=== PATIENT | female | born 1935 | race Caucasian/White ===

== ENCOUNTER 2016-03-29 12:42 | Emergency (ER) | payer MEDICARE, BC | END 2016-03-29 13:36 | disposition left against medical advice (07) | LOC: UCEAST 12:42 | DX: J02.9 Acute pharyngitis, unspecified (principal); Z53.21 Procedure and treatment not carried out due to patient leaving prior to being seen by health care provider ==

== ENCOUNTER 2016-03-29 14:29 | Emergency (ER) | payer MEDICARE, BC ==
[2016-03-29 15:05] VITALS: BP 160/90
--- NOTE | 2016-03-29 15:29 | UC ---
Respiratory Complaint HPI - HPI Summary HPI Summary: Tickle in throat on/off for a few days-no fever or SOB - History of Current Complaint Chief Complaint: UCRespiratory Stated Complaint: SORE THROAT Time Seen by Provider: 03/29/16 15:09 Hx Obtained From: Patient Hx Last Menstrual Period: years ago. ?: No Onset/Duration: Gradual Onset, Lasting Days Timing: Intermittent Episodes Severity Currently: Mild Pain Intensity: 2 Pain Scale Used: 0-10 Numeric Character: Cough: Nonproductive Aggravating Factors: Nothing Alleviating Factors: Nothing - Allergies/Home Medications Allergies/Adverse Reactions: Allergies Allergy/AdvReac Type Severity Reaction Status Date / Time No Known Allergies Allergy Verified 03/29/16 15:04 Home Medications: Home Medications Med For Osteoporosis* 03/29/16 [History] PMH/Surg Hx/FS Hx/Imm Hx Previously Healthy: No Endocrine History Of: Reports: Dyslipidemia Denies: Diabetes, Thyroid Disease, Hyperthyroidism, Hypothyroidism Cardiovascular History Of: Reports: Hypertension Denies: Cardiac Disorders, Pacemaker/ICD, Myocardial Infarction, Congestive Heart Failure, Atrial Fibrillation, Deep Vein Thrombosis, Bleeding Disorders Respiratory History Of: Denies: COPD, Asthma, Bronchitis, Pneumonia, Pulmonary Embolism GI/ History Of: Denies: Gastroesophageal Reflux, Ulcer, Gastrointestinal Bleed, Gall Bladder Disease, Kidney Stones, Diverticulitis, Renal Disease, Urosepsis Neurological History Of: Denies: TIA, CVA, Dementia, Seizures, Migraine Psychological History Of: Denies: Anxiety, Depression, Bipolar Disorder, Schizophrenia, Post Traumatic Stress Disorder Cancer History Of: Denies: Lung Cancer, Colorectal Cancer, Breast Cancer, Prostate Cancer, Cervical Cancer - Surgical History Surgical History: None - Family History Known Family History: Positive: Hypertension - Social History Occupation: Retired Lives: With Family Alcohol Use: None Substance Use Type: None Smoking Status (MU): Never Smoked Tobacco Type: Cigarettes When Did the Patient Quit Smoking/Using Tobacco: as a teenager - Immunization History Most Recent Influenza Vaccination: 2016 Most Recent Tetanus Shot: up to date per patient Most Recent Pneumonia Vaccination: pt is up to date Review of Systems Constitutional: Negative Skin: Negative Eyes: Negative ENT: Sore Throat - occasional tickle that stimulates a cough Respiratory: Negative Cardiovascular: Negative Gastrointestinal: Negative Genitourinary: Negative Motor: Negative Neurovascular: Negative Musculoskeletal: Negative Neurological: Negative Psychological: Negative All Other Systems Reviewed And Are Negative: Yes Physical Exam Triage Information Reviewed: Yes Appearance: Well-Appearing, No Pain Distress, Well-Nourished Vital Signs: Initial Vital Signs Temp 99.3 F 03/29/16 14:59 Pulse 63 03/29/16 14:59 Resp 16 03/29/16 14:59 BP 160/90 03/29/16 14:59 Pulse Ox 100 03/29/16 14:59 Vital Signs Reviewed: Yes Eye Exam: Normal Eyes: Positive: Conjunctiva Clear ENT Exam: Normal ENT: Positive: Normal ENT inspection, Hearing grossly normal, Pharynx normal, TMs normal. Negative: Nasal congestion, Nasal drainage, Tonsillar swelling, Tonsillar exudate, Trismus, Muffled/hoarse voice Dental Exam: Normal Neck exam: Normal Neck: Positive: Supple, Nontender, No Lymphadenopathy Respiratory Exam: Normal Respiratory: Positive: Chest non-tender, Lungs clear, Normal breath sounds, No respiratory distress, No accessory muscle use Cardiovascular Exam: Normal Cardiovascular: Positive: RRR, No Murmur, Pulses Normal, Brisk Capillary Refill Musculoskeletal Exam: Normal Musculoskeletal: Positive: Strength Intact, ROM Intact, No Edema Neurological Exam: Normal Neurological: Positive: Alert Psychological Exam: Normal Skin Exam: Normal UC Diagnostic Evaluation - Laboratory O2 Sat by Pulse Oximetry: 100 Diagnostic Studies Comment: RST (-) Respiratory Course/Dx - Course Course Of Treatment: otc treatment for sore throat, julianne. prn follow with pcp - Differential Dx/Diagnosis Differential Diagnosis/HQI/PQRI: Bronchitis, Lower Resp Infection, Sinusitis Provider Diagnoses: URI Discharge - Discharge Plan Condition: Stable Disposition: HOME Patient Education Materials: Upper Respiratory Infection (ED) Referrals: Dennys Traylor MD [Primary Care Provider] - If Needed
== END 2016-03-29 15:35 | disposition home or self-care (01) ==
LOC: UCEAST 14:29
DX: J06.9 Acute upper respiratory infection, unspecified (principal); Z87.891 Personal history of nicotine dependence
CPT/HCPCS: 87651; 99211; G0463

== ENCOUNTER 2016-08-11 07:57 | Day surgery (SDC) | payer MEDICARE, BC ==
[~2016-08-11 07:57] MED LIST: Acetaminophen TAB* 325 MG PO PRN; Buffered Lidocaine 1% SYR 3ML* 3 ML/SYR SYRINGE INTRADERM ONE
[2016-08-11] MEDS ORDERED: fentaNYL* 50 MCG/ML 2 ML VIAL (100 MCG VIAL) ONE (08:13)
[2016-08-11] MEDS ORDERED: Midazolam* 1 MG/ML 2 ML VIAL (2 MG) ONE (08:13)
[2016-08-11 09:28] VITALS: BP 152/85
[2016-08-11] MEDS ORDERED: Neomycin/Polymy/Dex OPHTH.OIN* 3.5 GM ONE (11:23)
[2016-08-11] MEDS ORDERED: Lidocaine 1% MPF* 2 ML VIAL ONE (11:23)
[2016-08-11] MEDS ORDERED: Tetracaine 0.5% OPTH.SOL 4 ML* 1 DROP BTL ONE (11:23)
[2016-08-11] MEDS ORDERED: Phenylephrine 2.5% OPTH.SOL* 2 ML BTL ONE (11:23)
[2016-08-11] MEDS ORDERED: Tropicamide 1% OPTH.SOL* BTL ONE (11:23)
[2016-08-11] MEDS ORDERED: Cyclopentolate 1% OPTH.SOL* 2 ML BTL ONE (11:23)
[2016-08-11] MEDS ORDERED: Flurbiprofen 0.03% OPTH.SOL* 2.5 ML BTL ONE (11:23)
--- NOTE | 2016-08-11 17:48 | OP ---
OPERATIVE REPORT: DATE OF OPERATION: 08/11/16 DATE OF : 39 SURGEON: Dr. Dennys Jensen. SHRIMPER: None. ANESTHESIA: Topical with intravenous sedation. PRE-OP DIAGNOSIS: Cataract, left eye. POST-OP DIAGNOSIS: Cataract, left eye. OPERATIVE PROCEDURE: Phacoemulsification and cataract extraction with posterior chamber intraocular lens implant, left eye. COMPLICATIONS: None. BLOOD LOSS: None. OPERATIVE FINDINGS: The patient was brought to the operating room and received a small amount of in travenous sedation. A drop of Tetracaine was placed in her left eye. She was prepped and draped in the usual sterile fashion for ophthalmic surgery and attention was directed to the left eye where a speculum was placed. A paracentesis was created at the 5 o'clock position and 0.1 cc of 1 percent preservative-free Lidocaine was injected into the anterior chamber followed by DisCoVisc. The eye w as digitally stabilized while a 2.75 mm keratome was used to create a triplanar clear corneal incisi on at the 3 o'clock position. A continuous curvilinear capsulorrhexis was created with a cystotome and Utrata forceps. BSS on a cannula was used to hydrodissect the lens from the capsule. Phacoemul sification was performed in a [id number] technique to create four fragments which were remov ed. Residual cortical material was removed with irrigation and aspiration. DisCoVisc was used to in flate the capsular bag and an [id number] 15.0 diopter lens was folded and inserted into the capsular bag . DisCoVisc was removed using irrigation and aspiration. BSS on a cannula was used to hydrate the corneal stroma and seal the wound. At the end of the case the pupil was round and the lens was cent ered. The eye was of normal pressure and the wound was water tight. The speculum was removed and to pical Maxitrol ointment was placed on the surface of the eye. The eye was closed, patched and shiel ded and the patient was sent to the recovery room in stable condition with post operative instructio ns and follow-up appointment given. [id number]/[facility] #: [id number]
== END 2016-08-11 09:35 | disposition home or self-care (01) ==
LOC: OREAST 07:57
PROVIDERS: ATTEND Ophthalmology
DX: H25.12 Age-related nuclear cataract, left eye (principal); I10 Essential (primary) hypertension; Z87.891 Personal history of nicotine dependence; E78.5 Hyperlipidemia, unspecified
CPT/HCPCS: A9270-GY; J2250; J3010; V2632

== ENCOUNTER 2016-08-29 12:23 | Emergency (ER) | payer MEDICARE, BC ==
--- NOTE | 2016-08-29 13:53 | UC ---
Neck Pain HPI - HPI Summary HPI Summary: Has had L-sided neck pain next to her throat for a "few days." It is mild, but worse at night when pt reads a lot. Denies injury or past surgery. No recent illness, except for very mild throat irritation. - History of Current Complaint Chief Complaint: UCUpperExtremity Stated Complaint: SORE AREA ON NECK Time Seen by Provider: 08/29/16 13:33 Hx Obtained From: Patient Hx Last Menstrual Period: years ago. ?: No Onset/Duration Of Injury/Symptoms: Days Mechanism Of Injury: No Known Trauma Onset/Duration: Gradual Onset, Lasting Days Severity: Mild Location: Discrete At: Character: Dull, Aching, Stiff Aggravating Factors: Movement Alleviating Factors: Compression Associated Signs & Symptoms: Positive: Negative - Allergies/Home Medications Allergies/Adverse Reactions: Allergies Allergy/AdvReac Type Severity Reaction Status Date / Time No Known Allergies Allergy Verified 08/29/16 13:24 PMH/Surg Hx/FS Hx/Imm Hx - Surgical History Surgical History: None - Family History Known Family History: Positive: Hypertension - Social History Occupation: Retired Alcohol Use: None Substance Use Type: None Smoking Status (MU): Never Smoked Tobacco Type: Cigarettes Have You Smoked in the Last Year: No When Did the Patient Quit Smoking/Using Tobacco: as a teenager - Immunization History Most Recent Influenza Vaccination: 2016 Most Recent Tetanus Shot: up to date per patient Most Recent Pneumonia Vaccination: pt is up to date Review Of Systems Constitutional: Positive: Negative Skin: Positive: Negative Eyes: Positive: Negative ENT: Positive: Negative Respiratory: Positive: Negative Cardiovascular: Positive: Negative Gastrointestinal: Positive: Negative Genitourinary: Positive: Negative Musculoskeletal: Positive: Myalgia - L neck Neurological: Positive: Negative Psychological: Positive: Negative All Other Systems Reviewed And Are Negative: Yes Physical Exam Triage Information Reviewed: Yes Appearance: Well-Appearing, No Pain Distress, Well-Nourished Vital Signs: Initial Vital Signs Temp 98 F 08/29/16 13:25 Pulse 64 08/29/16 13:25 Resp 16 08/29/16 13:25 BP 189/102 08/29/16 13:25 Pulse Ox 100 08/29/16 13:25 Vital Signs Reviewed: Yes Eye Exam: Normal Eyes: Positive: Conjunctiva Clear ENT Exam: Normal ENT: Positive: Normal ENT inspection, Hearing grossly normal, Pharynx normal, TMs normal Dental Exam: Normal Neck: Positive: Tenderness @ - minimal near L tonsillar nodes, no enlargement Respiratory Exam: Normal Respiratory: Positive: Chest non-tender, Lungs clear, Normal breath sounds, No respiratory distress, No accessory muscle use Cardiovascular Exam: Normal Cardiovascular: Positive: RRR, No Murmur Musculoskeletal Exam: Normal Neurological Exam: Normal Neurological: Positive: Alert Psychological Exam: Normal Skin Exam: Normal Neck Pain Course/Dx - Course Course Of Treatment: Pt's pain does not overlie and major muscles. Though no lymph nodes are palpably enlarged, pt reported soreness after tonsillar lymph node palpation. - Differential Dx/Diagnosis Differential Dx/HQI/PQRI: Arthritis, Sprain, Torticollis Provider Diagnoses: L tonsillar lymphadenopathy Discharge - Discharge Plan Condition: Stable Disposition: HOME Patient Education Materials: Lymphadenopathy (ED) Referrals: Dennys Traylor MD [Primary Care Provider] - 2 Weeks Additional Instructions: Given where your pain is, I suspect it is from an inflamed lymph node. Isolated lymph nodes are common and usually go away in a matter of weeks. It is actually reassuring when they are painful, as this is much more likely from an acute and temporary cause. See your primary care provider if you have marked swelling or persistent pain beyond 2 weeks.
[2016-08-29 13:56] VITALS: BP 145/93
== END 2016-08-29 13:50 | disposition home or self-care (01) ==
LOC: UCEAST 12:23
DX: R59.1 Generalized enlarged lymph nodes (principal)
CPT/HCPCS: 99212; G0463

== ENCOUNTER 2017-06-14 07:53 | Emergency (ER) | payer MEDICARE, OTHER ==
--- OUTSIDE RECORDS SUMMARY | 2017-06-14 08:01 | XMS REPORT ---
:1935 External Reference #:[id number] Author Organization [employer] Address [address] [place] [address] Phone [phone] Care Team Providers Name Role Phone Juventino Hudson MD Care Team Information Aerial Survey Technician Unavailable Celine Man MD Primary Care Physician Unavailable Payers Type Date Identification Numbers Payment Provider Subscriber Medicare Primary Effective: Policy Number: Medicare Sujatha Lombardo 2008 [id number] PayID: [id number] [address] [place] [address] [place] Part [address] Expires: 2011 Policy Number: [facility] Sujatha Lombardo [id number] PayID: [id number] [address] [address] [place] [address] Commercial Policy Number: [id number] [facility] Sjuatha Lombardo PayID: [id number] [address] [place] [address] Problems Description No Information Family History Date Family Member(s) Problem(s) Comments General Heart Disease Social History Type Date Description Comments 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 Use Denies alcohol use Smoking Patient has never smoked Exercise Type/Frequency Exercises regularly Allergies, Adverse Reactions, Alerts Date Description Reaction Status Severity Comments 04/28/2013 NKDA active Medications Medication Date Status Form Strength Qnty SIG Indications Ordering Provider Metoprolol Succinate 00/00/ Active Tablets 50mg 1 by Unknown ER 0000 ER 24HR mouth every day Atorvastatin Calcium 00/00/ Active Tablets 10mg 1 by Unknown 0000 mouth every day Fosamax / Active Tablets 70mg take 1 Unknown 0000 tablet by mouth weekly Vitamin B 12 / Active Lozenges 100mcg 1 by Unknown 0000 mouth every day Glucosamine / Active Capsules 1 tab a Unknown Chondroitin Complex 0000 day Calcium / Active Chewtabs 500mg 1 tab Unknown 0000 daily Vitamin D3 / Active Capsules 2000Unit 1 by Unknown 0000 mouth every day Naproxen 08/11/ Hx Tablets 500mg 60tab 1 tab Liss 2013 - by Dirk 09/01/ mouth M.DClarke 2017 twice a day Lopressor / Hx Unknown - 2016 Hydrochlorothiazide /00/ Hx Unknown - 2017 Indomethacin / Hx 25mg Unknown - 2016 Raloxifene HCL / Hx Tablets 60mg 1 by Unknown 0000 - mouth 2017 day Medications Administered in Office Medication Date Status Form Strength Qnty SIG Indications Ordering Provider Depomedrol Administered Injection Dirk Stephanie, 40MG 017 M.D. Vital Signs Date Vital Result Comment 05/19/2017 Height 66 inches 5'6" Weight 125.00 lb Heart Rate 64 /min BP Systolic Sitting 120 mmHg BP Diastolic Sitting 74 mmHg Respiratory Rate 16 /min BMI (Body Mass Index) 20.2 kg/m2 12/07/2016 Height 66 inches 5'6" Weight 120.00 lb BP Systolic 130 mmHg BP Diastolic 82 mmHg Respiratory Rate 18 /min Pain Level 0 BMI (Body Mass Index) 19.4 kg/m2 10/26/2016 Height 66 inches 5'6" Weight 120.00 lb BP Systolic 118 mmHg BP Diastolic 70 mmHg Respiratory Rate 18 /min Body Temperature 98.4 F Pain Level 7 BMI (Body Mass Index) 19.4 kg/m2 09/09/2016 Height 66 inches 5'6" Weight 120.00 lb Heart Rate 53 /min BP Systolic 182 mmHg BP Diastolic 95 mmHg Body Temperature 97.5 F BMI (Body Mass Index) 19.4 kg/m2 07/18/2014 Height 67 inches 5'7" Weight 121.00 lb Heart Rate 57 /min BP Systolic 129 mmHg BP Diastolic 85 mmHg Body Temperature 97.1 F Pain Level 2 BMI (Body Mass Index) 18.9 kg/m2 08/07/2013 Height 67 inches 5'7" Weight 123.00 lb Heart Rate 55 /min BP Systolic 132 mmHg BP Diastolic 85 mmHg BMI (Body Mass Index) 19.3 kg/m2 05/04/2013 Height 67 inches 5'7" Weight 123.00 lb Heart Rate 60 /min BP Systolic 153 mmHg BP Diastolic 90 mmHg BMI (Body Mass Index) 19.3 kg/m2 Results Description No Information Procedures Date CPT Code Description Status 10/26/2016 42973 Inject/Drain Joint/Bursa Major Completed 08/07/2013 37144 Rad Shoulder Comp, Min. 2 Views Completed 05/04/2013 79997 Rad Exam; Wrist, Comp, Min 3 Views Completed 07/13/2011 68569 Xray Knee 3 Views Completed 07/13/2011 71784 Rad Exam; Knee, Ap&L Completed 08/25/2008 14351 Treadmill Interp/Report Only Completed 08/25/2008 47332 Stress Test Supervsn W/Out I/R Completed Encounters Type Date Location Provider CPT E/M Dx Office Visit 05/19/2017 [facility] Ramila Thurston M.D. 41211 M54.16 9:00a [facility] Console Attendant R20.2 M41.34 Office Visit 12/07/2016 8:30a [facility] M.D. 26492 M17.12 C.M.A. Office Visit 10/26/2016 2:30p [facility] M.D. 56958 M17.12 C.M.A. Office Visit 09/09/2016 9:00a [facility] M.D. 99717 M17.12 C.M.A. Office Visit 07/18/2014 8:30a [facility] M.D. 60474 737.43 C.M.A. 847.9 724.4 737.30 Office Visit 08/07/2013 10:45a [facility] Liss Cavazos M.D. 23162 715.91 Of C.M.A. Office Visit 05/04/2013 1:00p [facility] Jewell Watters 99344 716.94 Of C.M.AClarke Ralph 716.94 Plan of Care Future Appointment(s):06/11/2017 9:00 am - Ramila Thurston M.D. at [facility]05/19/2017 - Ramila Thurston M.D.M54.16 Radiculopathy, lumbar regionNew Xrays:MRI Thoracic Spine W/JAMISON Lumbar Spine W/OFollow up: desktop support specialist: please change primary care to Dr. Man, and get her notes. follow up: add on after MRIs (30 min, or end of day).Recommendations:call us when you know the date of your MRI, so we can schedule your follow up visit. Continue your physical therapy [id number] Paresthesia of skinM41.34 Thoracogenic scoliosis, thoracic region
--- OUTSIDE RECORDS SUMMARY | 2017-06-14 08:01 | XMS REPORT ---
:1935 External Reference #:[id number] Author Organization [employer] Address [address] [place] [address] Phone [phone] Care Team Providers Name Role Phone Juventino Hudson MD Care Team Information Systems Accountant Unavailable Celine Man MD Primary Care Physician Unavailable Payers Type Date Identification Numbers Payment Provider Subscriber Medicare Primary Effective: Policy Number: Medicare Sujatha Lombardo 2008 [id number] PayID: [id number] [address] [place] [address] [employer] Part B Expires: 2011 Policy Number: [facility] Sujatha Lombardo [id number] PayID: [id number] [address] [address] [place] [address] Commercial Policy Number: [id number] [facility] Sujatha Lombardo PayID: [id number] [address] [place] [address] Problems Description No Information Family History Date [...] Qnty SIG Indications Ordering Provider Metoprolol Succinate / Active Tablets 50mg 1 by Unknown ER 0000 ER 24HR mouth twice a day Atorvastatin Calcium / Active Tablets 10mg 1 by Unknown 0000 mouth two times a week.. Fosamax / Active Tablets 70mg take 1 Unknown 0000 tablet by mouth weekly Vitamin B 12 / Active Lozenges 2500mcg 1 by Unknown 0000 mouth every day Glucosamine / Active Capsules 1 tab a Unknown Chondroitin Complex 0000 day Calcium / Active Chewtabs 500mg 1 tab Unknown 0000 daily Vitamin D3 / Active Capsules 2000Unit 1 by Unknown 0000 mouth every day Vitamin C / Active Tablets 1 by Unknown 0000 mouth every day Aspir-81 / Active Tablets 81mg [address] mouth every day Naproxen 08/11/ Hx Tablets 500mg 60tab 1 tab Liss 2013 - by Dirk 09/01/ mouth M.D. 2017 twice a day Lopressor / Hx Unknown - 2016 Hydrochlorothiazide / Hx Unknown - 2017 Indomethacin / Hx 25mg Unknown - 2016 Raloxifene HCL / Hx Tablets 60mg 1 by Unknown 0000 - mouth 2017 day Medications Administered in Office Medication Date Status Form Strength Qnty SIG Indications Ordering Provider Depomedrol Administered Injection Dirk Stephanie, 40MG 017 M.D. Vital Signs Date Vital Result Comment 06/11/2017 Height 66 inches 5'6" Weight 125.00 lb Heart Rate 58 /min BP Systolic 140 mmHg BP Diastolic 102 mmHg Respiratory Rate 14 /min BMI (Body Mass Index) 20.2 kg/m2 05/19/2017 Height 66 inches 5'6" Weight 125.00 [...] Information Procedures Date CPT Code Description Status 05/03/2017 Bone Mineral Density Test Completed 10/26/2016 93747 Inject/Drain Joint/Bursa Major Completed 08/07/2013 33872 Rad Shoulder Comp, Min. 2 Views Completed 05/04/2013 02457 Rad Exam; Wrist, Comp, Min 3 Views Completed 07/13/2011 15270 Xray Knee 3 Views Completed 07/13/2011 03308 Rad Exam; Knee, Ap&L Completed 08/25/2008 48818 Treadmill Interp/Report Only Completed 08/25/2008 87220 Stress Test Supervsn W/Out I/R Completed Encounters Type Date Location Provider CPT E/M Dx Office Visit 06/11/2017 [facility] Ramila Thurston M.D. 06339 M54.16 9:00a [facility] Case Work Aide R20.2 M48.07 M41.9 Office Visit 05/19/2017 9:00a [facility] Ramila Thurston M.D. 51413 M54.16 Services [facility] Case Work Aide R20.2 M41.34 Office Visit 12/07/2016 8:30a [facility] M.D. 60272 M17.12 C.M.A. Office Visit 10/26/2016 2:30p [facility] M.D. 92442 M17.12 C.M.A. Office Visit 09/09/2016 9:00a [facility] M.D. 26480 M17.12 C.M.A. Office Visit 07/18/2014 8:30a [facility] M.D. 47522 737.43 C.M.A. 847.9 724.4 737.30 Office Visit 08/07/2013 10:45a [facility] Liss Cavazos M.D. 85320 715.91 Of C.M.AClarke Office Visit 05/04/2013 1:00p [facility] Jewell Watters 09980 716.94 Of C.MAutumn Ralph 716.94 Plan of Care Future Appointment(s):12/15/2017 11:15 am - Ramila Thurston M.D. at [facility]06/11/2017 - Ramila Thurston M.D.M54.16 Radiculopathy, lumbar regionNew Therapy:Physical TherapyFollow up:6 casrsfQ49.2 Paresthesia of skinFollow up:front edger: Please get results of Lab tests ordered by Dr. Man this yearM48.07 Spinal stenosis, lumbosacral xkgisjR96.9 Scoliosis, unspecified
[2017-06-14 08:07] VITALS: BP 169/103
--- NOTE | 2017-06-14 08:25 | UC ---
Respiratory Complaint HPI - HPI Summary HPI Summary: Patient reports 2 weeks on and off for cough cold symptoms no history of throat patient reports her temperatures been around 98 which is a elevated temperature her is usually runs about 94 patient also is concerned about her blood pressure being a little bit high she checks it at home has been adherent with her medication regimen and no other changes - History of Current Complaint Chief Complaint: UCGeneralIllness Stated Complaint: COUGH Time Seen by Provider: 06/14/17 08:21 Hx Obtained From: Patient Hx Last Menstrual Period: years ago. ?: No Onset/Duration: Gradual Onset, Lasting Weeks - 2 Timing: Constant Pain Intensity: 0 Aggravating Factors: Nothing Alleviating Factors: Nothing Associated Signs And Symptoms: Positive: Fever, Chills, URI - Allergies/Home Medications Allergies/Adverse Reactions: Allergies Allergy/AdvReac Type Severity Reaction Status Date / Time No Known Allergies Allergy Verified 06/14/17 08:07 PMH/Surg Hx/FS Hx/Imm Hx Previously Healthy: No Endocrine History: Dyslipidemia Cardiovascular History: Hypertension - Surgical History Surgical History: Yes Surgery Procedure, Year, and Place: cataracts - Family History Known Family History: Positive: Hypertension - Social History Occupation: Retired Lives: With Family Alcohol Use: None Substance Use Type: None Smoking Status (MU): Never Smoked Tobacco Type: Cigarettes Have You Smoked in the Last Year: No When Did the Patient Quit Smoking/Using Tobacco: as a teenager - Immunization History Most Recent Influenza Vaccination: 2016 Most Recent Tetanus Shot: up to date per patient Most Recent Pneumonia Vaccination: pt is up to date Review of Systems Constitutional: Fever - Subjective, Chills Skin: Negative Eyes: Negative ENT: Sore Throat Respiratory: Cough Cardiovascular: Negative Gastrointestinal: Negative Genitourinary: Negative Motor: Negative Neurovascular: Negative Musculoskeletal: Negative Neurological: Negative Psychological: Negative Is Patient Immunocompromised?: No All Other Systems Reviewed And Are Negative: Yes Physical Exam Triage Information Reviewed: Yes Appearance: Well-Appearing, No Pain Distress, Well-Nourished Vital Signs: Initial Vital Signs Temp 98.1 F 06/14/17 07:58 Pulse 73 06/14/17 07:58 Resp 19 06/14/17 07:58 BP 169/103 06/14/17 07:58 Pulse Ox 100 06/14/17 07:58 Vital Signs Reviewed: Yes Eye Exam: Normal Eyes: Positive: Conjunctiva Clear ENT Exam: Normal ENT: Positive: Normal ENT inspection, Hearing grossly normal, Pharyngeal erythema, TMs normal, Uvula midline. Negative: Nasal congestion, Tonsillar swelling, Tonsillar exudate, Trismus, Muffled voice, Hoarse voice, Dental tenderness, Sinus tenderness Dental Exam: Normal Neck exam: Normal Neck: Positive: Supple, Nontender, No Lymphadenopathy Respiratory Exam: Normal Respiratory: Positive: Chest non-tender, Lungs clear, Normal breath sounds, No respiratory distress, No accessory muscle use Cardiovascular Exam: Normal Cardiovascular: Positive: RRR, No Murmur, Pulses Normal, Brisk Capillary Refill Musculoskeletal Exam: Normal Musculoskeletal: Positive: Strength Intact, ROM Intact, No Edema Neurological Exam: Normal Neurological: Positive: Alert, Muscle Tone Normal Psychological Exam: Normal Skin Exam: Normal UC Diagnostic Evaluation - Laboratory O2 Sat by Pulse Oximetry: 100 Diagnostic Studies Comment: Influenza B is positive - Radiology Xray Interpretation: No Acute Changes - patient continues with the same chronic changes in her lungs,her thoracic spine, and aorta no acute or new pathology noted Radiology Interpretation Completed By: Radiologist Respiratory Course/Dx - Course Course Of Treatment: Rest increase fluids Tylenol ibuprofen for pain Tamiflu may take Mucinex also to help manage secretions follow up with primary care doctor in next 1-2 weeks - Differential Dx/Diagnosis Provider Diagnoses: Hypertension in poor control, influenza B Discharge - Discharge Plan Condition: Stable Disposition: HOME Prescriptions: Oseltamivir CAP* [Tamiflu CAP*] 75 mg PO BID #10 cap Patient Education Materials: Influenza (ED), Hypertension (ED) Referrals: Celine Man MD [Primary Care Provider] - 1 Week Additional Instructions: Please call your husbands video game designer as well to notify them that you have influenza B as they may want to treat him prophylactically for influenza
--- NOTE | 2017-06-14 09:08 | RAD ---
INDICATION: 4 weeks minor productive cough. COMPARISON: January 03, 2016 and January 03, 2016 TECHNIQUE: Dual energy PA and routine lateral views of the chest were obtained. REPORT: Severely elevated lung volumes and diffuse rarefaction of the interstitial markings. No focal pulmonary lesion, compelling alveolar consolidation, pleural effusion, pneumothorax. Negative for cardiomegaly. Moderately tortuous descending thoracic aorta without change. Approximate T11 anterior and middle column compression fracture is chronic. Bone density appears decreased throughout. No new thoracic spine fracture evident. IMPRESSION: Stigmata of advanced chronic obstructive lung disease and emphysema. No acute cardiopulmonary process evident.
== END 2017-06-14 09:25 | disposition home or self-care (01) ==
LOC: UCEAST 07:53
DX: J10.1 Influenza due to other identified influenza virus with other respiratory manifestations (principal); I10 Essential (primary) hypertension
CPT/HCPCS: 71046; 87502; 99212; G0463

== ENCOUNTER 2018-04-12 08:27 | Emergency (ER) | payer MEDICARE, OTHER ==
[2018-04-12 08:45] VITALS: BP 172/91
--- NOTE | 2018-04-12 08:48 | UC ---
General HPI - HPI Summary HPI Summary: 82 yo female c/o "dizziness" (lightheaded, instability, no spinning, unsteady, zaida with position changes) x a little over one week. Last evening (can't recall exact timing) c/o chest pain mid left ant chest and feeling of heart racing. Went to sleep, was able to sleep, but a little dizzy this morning. Presents today c/o wanting to be checked for a heart attack. No current pain / palpitations. No rash. No abd issue. No urine issues. No ear pain, visual changes, h/a. No known hx cardiac issues. 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 - Allergy/Home Medications Allergies/Adverse Reactions: Allergies Allergy/AdvReac Type Severity Reaction Status Date / Time No Known Allergies Allergy Verified 04/12/18 08:45 Home Medications: Home Medications Alendronate (NF) [Fosamax (NF)] 1 tab PO WEEKLY 04/12/18 [History Confirmed ] Amlodipine Besylate [Norvasc] 5 mg PO DAILY 04/12/18 [History Confirmed 04/12/18 ] Aspirin 324 mg PO ONCE 04/12/18 [History Confirmed 04/12/18] Lisinopril [Lisinopril 30 MG-] 30 mg PO DAILY 04/12/18 [History Confirmed ] PMH/Surg Hx/FS Hx/Imm Hx Previously Healthy: No - see - Surgical History Surgical History: Yes Surgery Procedure, Year, and Place: cataracts - Family History Known Family History: Positive: Hypertension - Social History Alcohol Use: None Substance Use Type: None Smoking Status (MU): Never Smoked Tobacco Type: Cigarettes Have You Smoked in the Last Year: No When Did the Patient Quit Smoking/Using Tobacco: as a teenager - Immunization History Most Recent Influenza Vaccination: 2016 Most Recent Tetanus Shot: up to date per patient Most Recent Pneumonia Vaccination: pt is up to date Review of Systems All Other Systems Reviewed And Are Negative: Yes Constitutional: Positive: Other - see hpi Skin: Positive: Negative Eyes: Positive: Other - see hpi ENT: Positive: Other - see hpi Respiratory: Positive: Other - see hpi Cardiovascular: Positive: Other - see hpi Gastrointestinal: Positive: Negative Genitourinary: Positive: Negative Motor: Positive: Negative Neurovascular: Positive: Negative Musculoskeletal: Positive: Negative Neurological: Positive: Other - see hpi Psychological: Positive: Negative Is Patient Immunocompromised?: No Physical Exam Triage Information Reviewed: Yes Appearance: Well-Appearing, Well-Nourished - sitting up on stretcher, conversing easily. Vital Signs Reviewed: Yes Eye Exam: Normal ENT Exam: Normal Neck exam: Other - supple for age, nontender. ? adenopathy Bilat ant clav, but not mobile Respiratory Exam: Normal Respiratory: Positive: Chest non-tender, Lungs clear, Normal breath sounds, No respiratory distress, No accessory muscle use Cardiovascular Exam: Normal Cardiovascular: Positive: RRR, No Murmur, Pulses Normal, Brisk Capillary Refill Abdominal Exam: Normal Abdomen Description: Positive: Nontender Musculoskeletal Exam: Normal - moves x 4 exts Musculoskeletal: Positive: Strength Intact, Edema @ - BLE venous insuff changes , dry skin, mild industrial eng edema. Neurological Exam: Normal - grossly nonfocal Psychological Exam: Normal - conversing easily and appropriately Skin Exam: Normal - no visible or reported rash Course/Dx - Course Course Of Treatment: EKG sinus rhythm at 57 bpm. Some artifact but similar wave form 09/2012 (hr at that time 68bpm). Pt took four baby chewable aspirin last evening at 22:30, as such this was not administered here this am. She typically takes single asa once daily. Recommend ED evaluation / tx. Declines EMS transport, spouse wishes to drive. Will call 911 if problems en route. Questions as posed answered to the best of my ability. I spoke with Estela Huang via telephone apprx 09:10am. - Diagnoses Provider Diagnosis: Dizziness, Chest pain Discharge - Sign-Out/Discharge Documenting (check all that apply): Patient Departure All imaging exams completed and their final reports reviewed: No Studies - Discharge Plan Condition: Stable Disposition: HOME-RECOMMEND TO ED Patient Education Materials: Chest Pain (ED), Lightheadedness (ED) Referrals: Celine Man MD [Primary Care Provider] - Additional Instructions: Please go directly to the Emergency Department. Please stop and call 911 for problems en route. - Billing Disposition and Condition Condition: STABLE Disposition: Home-Recommend to ED
== END 2018-04-12 09:10 | disposition home health service (06) ==
LOC: UCEAST 08:27
DX: R42 Dizziness and giddiness (principal); R07.89 Other chest pain; R00.1 Bradycardia, unspecified
CPT/HCPCS: 93005; 99212; G0463

== ENCOUNTER 2018-04-12 09:37 | Emergency (ER) | payer MEDICARE, OTHER ==
--- NOTE | 2018-04-12 10:16 | ED ---
HPI Chest Pain - HPI Summary HPI Summary: This pt is an 82 y/o female presenting to [facility] c/o chest pain yesterday that has resolved since then. She reports hx of anxiety. Pt states last night she had chest pain, unusual and different from her anxiety. Pt notes that her chest pain lasted between 5-10 minutes and then resolved on its own. She used the treadmill earlier in the day but states she uses it all the time. Denies SOB, dizziness, lightheadedness, fever, chills. A couple of days ago pt was dizzy, but not yesterday or today. - History of Current Complaint Chief Complaint: EDGeneral Time Seen by Provider: 04/12/18 09:59 Hx Obtained From: Patient Hx Last Menstrual Period: years ago. Onset/Duration: Started Hours Ago, Resolved Timing: Lasting Minutes - 5-10 min Initial Severity: Moderate Current Severity: None Pain Intensity: 0 Pain Scale Used: 0-10 Numeric Chest Pain Location: Mid Sternal Chest Pain Radiates: No Aggravating Factor(s): Nothing Alleviating Factor(s): Spontaneous Resolution Associated Signs and Symptoms: Positive: Chest Pain. Negative: Dizziness, Shortness of Breath, Fever, Chills, Lightheadedness - Allergy/Home Medications Allergies/Adverse Reactions: Allergies Allergy/AdvReac Type Severity Reaction Status Date / Time No Known Allergies Allergy Verified 04/12/18 09:45 Home Medications: Home Medications amLODIPine TAB* [Norvasc 5 mg TAB*] 5 mg PO DAILY 04/12/18 [History Confirmed ] PMH/Surg Hx/FS Hx/Imm Hx Endocrine/Hematology History: Denies: Hx Diabetes, Hx Thyroid Disease Cardiovascular History: Reports: Hx Hypertension - ON MEDS Denies: Hx Congestive Heart Failure, Hx Deep Vein Thrombosis, Hx Myocardial Infarction, Hx Pacemaker/ICD Respiratory History: Denies: Hx Asthma, Hx Chronic Obstructive Pulmonary Disease (COPD), Hx Lung Cancer, Hx Pneumonia, Hx Pulmonary Embolism GI History: Denies: Hx Gall Bladder Disease, Hx Gastrointestinal Bleed, Hx Ulcer, Hx Urosepsis History: Denies: Hx Kidney Stones, Hx Renal Disease Musculoskeletal History: Reports: Hx Osteoporosis, Hx Scoliosis, Other Musculoskeletal History - FRACTURED VERTABRAE- 4-5 YEARS AGO Sensory History: Reports: Hx Cataracts - BILATERAL, Hx Contacts or Glasses - GLASSES Denies: Hx Hearing Aid Opthamlomology History: Reports: Hx Cataracts - BILATERAL, Hx Contacts or Glasses - GLASSES Neurological History: 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 Denies: Hx Dementia, Hx Headaches, Hx Migraine, Hx Seizures, Hx Transient Ischemic Attacks (TIA) Psychiatric History: Denies: Hx Anxiety, Hx Depression, Hx Panic Disorder, Hx Schizophrenia, Hx Bipolar Disorder - Cancer History Hx Chemotherapy: No Hx Radiation Therapy: No - Surgical History Surgery Procedure, Year, and Place: cataracts Infectious Disease History: No Infectious Disease History: Denies: Hx Clostridium Difficile, Hx Hepatitis, Hx Human Immunodeficiency Virus (HIV), Hx of Known/Suspected MRSA, Hx Shingles, Hx Tuberculosis, Hx Known/ Suspected VRE, Hx Known/Suspected VRSA, History Other Infectious Disease, Traveled Outside the [place] in Last 30 Days - Family History Known Family History: Positive: Hypertension - Social History Alcohol Use: None Substance Use Type: Reports: None Smoking Status (MU): Never Smoked Tobacco Type: Cigarettes Have You Smoked in the Last Year: No Review of Systems Negative: Fever, Chills Positive: Chest Pain - now resolved Negative: Shortness Of Breath Neurological: Other - NEG: dizziness, lightheadedness Positive: Anxious All Other Systems Reviewed And Are Negative: Yes Physical Exam - Summary Physical Exam Summary: VITAL SIGNS: Reviewed. GENERAL: Patient is a well-developed and nourished female who is lying comfortable in the stretcher. Patient is not in any acute respiratory distress. HEAD AND FACE: No signs of trauma. No ecchymosis, hematomas or skull depressions. No sinus tenderness. EYES: PERRLA, EOMI x 2, No injected conjunctiva, no nystagmus. EARS: Hearing grossly intact. Ear canals and tympanic membranes are within normal limits. MOUTH: Oropharynx within normal limits. NECK: Supple, trachea is midline, no adenopathy, no JVD, no carotid bruit, no c- spine tenderness, neck with full ROM. CHEST: Symmetric, no tenderness at palpation LUNGS: Clear to auscultation bilaterally. No wheezing or crackles. CVS: Regular rate and rhythm, S1 and S2 present, no murmurs or gallops appreciated. ABDOMEN: Soft, non-tender. No signs of distention. No rebound, no guarding, and no masses palpated. Bowel sounds are normal. EXTREMITIES: FROM in all major joints, no edema, no cyanosis or clubbing. NEURO: Alert and oriented x 3. No acute neurological deficits. Speech is normal and follows commands. SKIN: Dry and warm Triage Information Reviewed: Yes Vital Signs On Initial Exam: Initial Vitals Temp Pulse Resp BP Pulse Ox 98.3 F 54 16 161/97 100 04/12/18 09:41 04/12/18 09:41 04/12/18 09:41 04/12/18 09:41 04/12/18 09:41 Vital Signs Reviewed: Yes Diagnostics - Vital Signs Vital Signs Temp Pulse Resp BP Pulse Ox 04/12/18 10:00 54 100 04/12/18 09:59 53 100 04/12/18 09:58 54 190/101 100 04/12/18 09:41 98.3 F 54 16 161/97 100 - Laboratory Result Diagrams: 04/12/18 10:52 04/12/18 10:52 Lab Statement: Any lab studies that have been ordered have been reviewed, and results considered in the medical decision making process. - Radiology Chest XR Radiology Interpretation Completed By: Radiologist Summary of Radiographic Findings: IMPRESSION: COPD. No active cardiopulmonary disease. Dr. Aponte has reviewed this report. - EKG 10:01 Cardiac Rate: Bradycardia - at 52 bpm EKG Rhythm: Sinus Bradycardia EKG Comparison: No Significant Change - similar to prior EKG on 04/12/18. Summary of EKG Findings: No ST elevations. Chest Pain Course/Dx - Course Assessment/Plan: This pt is an 82 y/o female [place] [facility] [place]/o chest pain yesterday that has resolved since then. She reports hx of anxiety. Pt states last night she had chest pain, unusual and different from her anxiety. Pt notes that her chest pain lasted between 5-10 minutes and then resolved on its own. She used the treadmill earlier in the day but states she uses it all the time. Denies SOB, dizziness, lightheadedness, fever, chills. A couple of days ago pt was dizzy, but not yesterday or today. Blood work without any significant abnormality except for sodium of 134, troponin is 0.01 and BNP 325. EKG shows a normal sinus rhythm without any ST elevation. Chest x-ray impression: COPD. No active Cardiopulmonary disease. In the ED course the patient has remained stable. Patient has no other complaints. Second troponin is also negative. The patient is asymptomatic. Therefore I believe that the patient had an atypical chest pain and anxiety. Therefore the patient will be discharged home with follow-up from her PCP. I discussed all the findings and test results with the patient. Patient was instructed to return to the emergency room immediately if any of the symptoms return or worsens. Plan of care was discussed with the patient and understands and agrees. All questions were answered at patient satisfaction. There were no further complaints or concerns. Lung exam before discharge: CTA B/L. Good air exchange. No wheezing or crackles heard. CVS: S1 and S2 present. No murmurs appreciated. Patient is alert and oriented x 3. Patient is hemodynamically stable. Patient will be discharged home with follow up from her PCP in the next 2-3 days. - Chest Pain Differential Diagnosis/HQI/PQRI: Acute NC, ACS, Angina, CHF, Chest Wall, GI Disease, Lower Respiratory Infection - Diagnoses Provider Diagnoses: Atypical chest pain, Anxiety Discharge - Sign-Out/Discharge Documenting (check all that apply): Patient Departure - Discharge home - Discharge Plan Condition: Stable Disposition: HOME Patient Education Materials: Chest Pain (ED), Anxiety (ED) Referrals: Celine Man MD [Primary Care Provider] - Additional Instructions: FOLLOW UP WITH YOUR PRIMARY CARE PROVIDER WITHIN ONE WEEK FOR HIGH BLOOD PRESSURE NOTED TODAY. RETURN TO THE ED FOR ANY NEW OR WORSENING SYMPTOMS. - Billing Disposition and Condition Condition: STABLE Disposition: Home - Attestation Statements Document Initiated by Kimberley: Yes Documenting Scribe: Rhonda Wallace Provider For Whom Kimberley is Documenting (Include Credential): Zenon Aponte MD Scribe Attestation: Rhonda Grossman, scribed for Zenon Aponte MD on 04/13/18 at 0715. Scribe Documentation Reviewed: Yes Provider Attestation: The documentation as recorded by the Rhonda solitario accurately reflects the service I personally performed and the decisions made by , Zenon Aponte MD Status of Scribe Document: Viewed
[2018-04-12 10:59] LABS: ABS Basophils 0 10^3/ul (0-0.2); ABS Eosinophils 0 10^3/ul (0-0.6); ABS Lymphocytes 0.8 10^3/ul (1.0-4.8); ABS Monocytes 0.6 10^3/ul (0-0.8); ABS Neutrophils 4.6 10^3/ul (1.5-7.7); ABS Nucleated RBC 0 10^3/ul; Eosinophil % 0.8 %; Hematocrit 41 % (35-47); Hemoglobin 13.7 g/dl (12.0-16.0); Lymphocyte % 12.8 %; Mean Corpuscular HGB Conc 34 g/dl (31-36); Mean Corpuscular Hemoglobin 30 pg (27-31); Mean Corpuscular Volume 90 fL (80-97); Mean Platelet Volume 7.6 fL (7.4-10.4); Nucleated Red Blood Cells % 0; Platelet Count 315 10^3/ul (150-450); Red Blood Count 4.52 10^6/ul (4.00-5.40); Red Cell Distribution Width 14 % (10.5-15); White Blood Count 6.1 10^3/ul (3.5-10.8)
[2018-04-12 11:10] LABS: Activated Partial Thrombo Time 27.9 seconds (26.0-36.3); INR 0.9 (0.77-1.02)
[2018-04-12 11:29] LABS: Albumin 4.3 g/dL (3.2-5.2); BUN/Creatinine Ratio 22.4 (8-20); Calcium 9.6 mg/dL (8.6-10.3); Globulin 2.2 g/dL (2-4); Magnesium 2.2 mg/dL (1.9-2.7); Potassium 3.6 mmol/L (3.5-5.0); Total Bilirubin 0.6 mg/dL (0.2-1.0); Total Protein 6.5 g/dL (6.4-8.9)
[2018-04-12 13:15] LABS: TSH (Thyroid Stimulating Horm) 2.69 mcIU/mL (0.34-5.60)
[2018-04-12 13:26] LABS: Urine Appearance Clear; Urine Bacteria Absent (Absent); Urine Bilirubin Negative (Negative); Urine Blood 1+ (Negative); Urine Color Straw; Urine Glucose Negative (Negative); Urine Ketones Negative (Negative); Urine Nitrite Negative (Negative); Urine Protein Negative (Negative); Urine Red Blood Cell 1+(3-5/hpf) (Absent); Urine Specific Gravity 1.006 (1.010-1.030); Urine Urobilinogen Negative (Negative); Urine White Blood Cell Trace(0-5/hpf) (Absent)
[2018-04-12 14:06] VITALS: BP 162/90
== END 2018-04-12 14:50 | disposition home or self-care (01) ==
LOC: ED 09:37
DX: R07.89 Other chest pain (principal); F41.9 Anxiety disorder, unspecified; I10 Essential (primary) hypertension; R42 Dizziness and giddiness; R00.1 Bradycardia, unspecified
CPT/HCPCS: 36415; 71045; 80053; 81003; 81015; 82550; 82553; 83605; 83735; 83880; 84443; 84484; 85025; 85610; 85730; 87086; 93005; 99282

== ENCOUNTER 2018-11-16 14:56 | Emergency (ER) | payer MEDICARE, OTHER ==
[2018-11-16] MEDS ORDERED: Aspirin 81 mg CHEW TAB* 81 MG TAB.CHEW PO ONE (16:02)
--- NOTE | 2018-11-16 16:05 | ED ---
HPI Chest Pain - HPI Summary HPI Summary: Pt is an 83 y/o female presenting to [facility] at 1545 via private car after being referred from [facility] by Dr. Khan w/ talon of chest pain, dizziness, SOB, nausea after climbing 2 flights of stairs 2 days ago on . Pt was a physical therapy for her knee in the same building as [facility] so she thought she would get checked out. Pt's EKG at [facility] was without acute changes, and pt declined ASA, and chose to come by private car for further evaluation of a possible cardiac cause of her symptoms. Pt has not had recurrence of her symptoms since 11/14/18, and has no symptoms at this time. Pt states that she normally develops CP with her anxiety but states that this episode was worse than usual. Pt denies fever, cough, calf pain, abdominal pain , urinary symptoms. Pt has PMH HTN and hyperlipidemia. Pt denies past surgical hx. No PMH of TN, stroke, and thyroid problems. No fam hx of heart disease. NKDA. Meds below reviewed. Vital signs are HR 55 bpm, BP 173/106, O2 sat 99% in room. Pt seen in [facility] initially. Home Medications Medication Instructions Recorded Confirmed Type Metoprolol Tartrate TAB* 50 mg PO BID 07/31/16 11/16/18 History [Lopressor TAB*] Alendronate (NF) [Fosamax (NF)] 1 tab PO WEEKLY 04/12/18 11/16/18 History Lisinopril [Lisinopril 30 MG-] 30 mg PO DAILY 04/12/18 11/16/18 History amLODIPine TAB* [Norvasc 5 mg TAB*] 5 mg PO DAILY 04/12/18 11/16/18 History ALPRAZolam TAB* [Xanax TAB*] 0.25 mg PO DAILY 11/16/18 11/16/18 History Ascorbic Acid TAB* [Vitamin C 500 mg PO DAILY 11/16/18 11/16/18 History TAB*] Atorvastatin* [Lipitor*] 10 mg PO .2/WEEK 11/16/18 11/16/18 History Calcium Carbonate CHEW TAB* [Tums*] 500 mg PO DAILY 11/16/18 11/16/18 History Cholecalciferol CAP/TAB(NF) 1,000 unit PO DAILY 11/16/18 11/16/18 History [Vitamin D3 CAP/TAB (NF)] Cyanocobalamin (Vitamin B-12) 2,500 mcg SL DAILY 11/16/18 11/16/18 History [Vitamin B-12] Glucosam/Chondr/Collagn/Hyalur [Th 1 cap PO DAILY 11/16/18 11/16/18 History Glucosamine/Chondroiti] Polyethylene Glycol 3350* 17 gm PO DAILY PRN 11/16/18 11/16/18 History [Miralax*] - History of Current Complaint Chief Complaint: EDChestPainROMI Time Seen by Provider: 11/16/18 15:38 Hx Obtained From: Patient Hx Last Menstrual Period: years ago. Onset/Duration: Started Days Ago, Resolved Timing: Constant, Lasting Minutes - on 11/14/18 Initial Severity: Moderate Current Severity: None Pain Intensity: 0 Pain Scale Used: 0-10 Numeric Chest Pain Location: Diffuse Chest Pain Radiates: No Character: Dull/Aching, Other: - Fullness Aggravating Factor(s): Other: - Anxiety Alleviating Factor(s): Spontaneous Resolution Associated Signs and Symptoms: Positive: Chest Pain - since resolved experienced 11/14/18, Dizziness - 11/14/18, Shortness of Breath - 11/14/18, Diaphoresis. Negative: Fever, Nausea Related History: Similar Episode/Dx as: - anxiety - Allergy/Home Medications Allergies/Adverse Reactions: Allergies Allergy/AdvReac Type Severity Reaction Status Date / Time No Known Allergies Allergy Verified 11/16/18 15:07 Home Medications: Home Medications ALPRAZolam TAB* [Xanax TAB*] 0.25 mg PO DAILY MDD ` 11/16/18 [History Confirmed 11/16/18] Ascorbic Acid TAB* [Vitamin C TAB*] 500 mg PO DAILY 11/16/18 [History Confirmed 11/16/18] Atorvastatin* [Lipitor*] 10 mg PO SEE INSTRUCTIONS 11/16/18 [History Confirmed 11/16/18] Calcium Carbonate CHEW TAB* [Tums*] 500 mg PO DAILY 11/16/18 [History Confirmed 11/16/18] Cholecalciferol CAP/TAB(NF) [Vitamin D3 CAP/TAB (NF)] 1,000 unit PO DAILY [History Confirmed 11/16/18] Cyanocobalamin (Vitamin B-12) [Vitamin B-12] 2,500 mcg SL DAILY 11/16/18 [ History Confirmed 11/16/18] Glucosam/Chondr/Collagn/Hyalur [Th Glucosamine/Chondroiti] 1 cap PO DAILY [History Confirmed 11/16/18] Polyethylene Glycol 3350* [Miralax*] 17 gm PO DAILY PRN 11/16/18 [History Confirmed 11/16/18] PMH/Surg Hx/FS Hx/Imm Hx Previously Healthy: No Endocrine/Hematology History: Denies: Hx Diabetes, Hx Thyroid Disease Cardiovascular History: Reports: Hx Hypercholesterolemia, Hx Hypertension Denies: Hx Congestive Heart Failure, Hx Deep Vein Thrombosis, Hx Myocardial Infarction, Hx Pacemaker/ICD Respiratory History: Denies: Hx Asthma, Hx Chronic Obstructive Pulmonary Disease (COPD), Hx Lung Cancer, Hx Pneumonia, Hx Pulmonary Embolism GI History: Denies: Hx Gall Bladder Disease, Hx Gastrointestinal Bleed, Hx Ulcer, Hx Urosepsis History: Denies: Hx Kidney Stones, Hx Renal Disease Musculoskeletal History: Reports: Hx Osteoporosis, Hx Scoliosis, Other Musculoskeletal History - fractured vertebrae Sensory History: Reports: Hx Cataracts - BILATERAL, Hx Contacts or Glasses - GLASSES Denies: Hx Hearing Aid Opthamlomology History: Reports: Hx Cataracts - BILATERAL, Hx Contacts or Glasses - GLASSES Neurological History: 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 Denies: Hx Dementia, Hx Headaches, Hx Migraine, Hx Seizures, Hx Transient Ischemic Attacks (TIA) Psychiatric History: Denies: Hx Anxiety, Hx Depression, Hx Panic Disorder, Hx Schizophrenia, Hx Bipolar Disorder - Cancer History Hx Chemotherapy: No Hx Radiation Therapy: No - Surgical History Surgery Procedure, Year, and Place: cataracts Infectious Disease History: No Infectious Disease History: Denies: Hx Clostridium Difficile, Hx Hepatitis, Hx Human Immunodeficiency Virus (HIV), Hx of Known/Suspected MRSA, Hx Shingles, Hx Tuberculosis, Hx Known/ Suspected VRE, Hx Known/Suspected VRSA, History Other Infectious Disease, Traveled Outside the [place] in Last 30 Days - Family History Known Family History: Positive: Hypertension Negative: Cardiac Disease - Social History Alcohol Use: None Hx Substance Use: No Substance Use Type: Reports: None Hx Tobacco Use: No Smoking Status (MU): Never Smoked Tobacco Have You Smoked in the Last Year: No Review of Systems Positive: Skin Diaphoresis. Negative: Fever Positive: Chest Pain - Since resolved 11/14/18 Positive: Shortness Of Breath Positive: Nausea Positive: no symptoms reported Musculoskeletal: Negative Skin: Negative Neurological: Other - dizziness Positive: Anxious All Other Systems Reviewed And Are Negative: Yes Physical Exam - Summary Physical Exam Summary: Appearance: well appearing, no pain distress, well-nourished, not anxious appearing at this time Skin: Warm, color reflects adequate perfusion, dry Head: Normal Head/Face inspection, atraumatic Eyes: Conjunctiva clear ENT: Normal inspection Neck: Supple, no nodes, no JVD Respiratory: Lungs clear, normal breath sounds, no respiratory distress Cardio: RRR, No murmur, pulses normal, brisk capillary refill Abdomen: Soft, nontender, nondistended. L,S,K non palpable, no masses, no bruits Bowel sounds: Present Musculoskeletal: Strength Intact/ROM intact, no calf tenderness, no edema. Psychological: Normal Neuro: Alert, muscle tone normal, no focal deficit, facial symmetry, speech clear and coherent Triage Information Reviewed: Yes Vital Signs On Initial Exam: Initial Vitals Temp Pulse Resp BP Pulse Ox 98.4 F 64 16 180/111 99 11/16/18 15:04 11/16/18 15:04 11/16/18 15:04 11/16/18 15:04 11/16/18 15:04 Vital Signs Reviewed: Yes Diagnostics - Vital Signs Vital Signs Temp Pulse Resp BP Pulse Ox 11/16/18 15:04 98.4 F 64 16 180/111 99 - Laboratory Result Diagrams: 11/16/18 16:01 11/16/18 16:01 Lab Statement: Any lab studies that have been ordered have been reviewed, and results considered in the medical decision making process. - Radiology Chest Xray Radiology Interpretation Completed By: Radiologist Summary of Radiographic Findings: IMPRESSION: Hyperinflated lungs with no acute cardiopulmonary process by radiograph. This report has been reaad and reviewed by Dr. Yamil Leblanc. - EKG 1358 Cardiac Rate: NL - 60 EKG Rhythm: Sinus Rhythm ST Segment: Normal Ectopy: None EKG Comparison: No Significant Change Summary of EKG Findings: An EKG at 1358 reveals normal sinus rhythm at 60 bpm w / nml AV/IV CT, nml QTc, and nml axis. No acute changes. No significant change from 04/12/18. ED MD has reviewed and interpreted this EKG 1534 Cardiac Rate: Bradycardia - 58 EKG Rhythm: Sinus Bradycardia ST Segment: Normal Ectopy: None EKG Comparison: No Significant Change Summary of EKG Findings: An EKG at 1534 reveals sinus bradycardia at 58 bpm w/ nml AV/IV CT, nml QTc, and nml axis. No acute changes. No significant change from 1358. ED MD has reviewed and interpreted this EKG Re-Evaluation - Re-Evaluation First Eval Re-Evaluation Time: 16:00 Change: Unchanged - 16 Comment: Pt agrees to ASA. ASA 324 mg chewable given. Second Eval Re-Evaluation Time: 19:00 Change: Unchanged Comment: Pt remains without symptoms. Declines anxiety. States she has anxiety medication at home. Two troponins are negative. Pt agrees with discharge. BNP is slightly elevated at 340, however pt does not have clinical, physical exam or xray evidence of CHF, so will not pursue treatment of CHF at this time. Chest Pain Course/Dx - Course Course Of Treatment: Pt is an 83 y/o female presenting to [facility] by private car, referred from [facility] w/ cc of chest pain, dizziness, SOB, N after climbing two fights of stairs on 11/14/18. Pt is currently symptoms free, but had [facility]. Pt states that she normally develops CP with her anxiety but states that this episode was worse than usual. Pts Cardiac risks include HTN and HLD. NKDA.Most recent stress test was years ago, unrecalled, and pt does not have a cad specialist, or take a daily ASA. Pt chest xray shows hyperinflated lungs with no acute cardiopulmonary process by radiograph. Pt has a normal CBC. Pt chemistry reads as sodium 133, chloride 98, BUN/Creatinine Ratio 22.2, Glucose 105, BNP 340. Pt UA reads Ur specific [place] 1.005, Urine blood 2+ A, Ur Leukocyte Esterase 1+ A, Urine WBC (Auto) 1 + (6-10/hpf) A, Urine RBC 3+(>10/hpf) A, Ur Squamous Epith Cells Present A. In the ED course ptt received Aspirin 324 mg PO, having refused it at [facility]. An EKG at 1358 from [facility] reveals normal sinus rhythm at 60 bpm w/ nml AV/IV CT, nml QTc, and nml axis. No acute changes. No significant change from 04/12/18. ED MD has reviewed and interpreted this EKG. An EKG at 1534 done in the ED reveals sinus bradycardia at 58 bpm w/ nml AV/IV CT, nml QTc, and nml axis. No acute changes. No significant change from 1358 or 04/12/18. ED MD has reviewed and interpreted this EKG and prior two EKG's. Pt remained asymptomatic throughout the ED course and had two negative troponins 3 hrs apart. Pt's slightly elevated BNP at 340 will not be treated as acute CHF, as pt has not clinical evidence or radiographic evidence of CHF. Pt is agreeable to DC. Pt will be d/c'ed with dx including CP and HTN under poor control. - Chest Pain Differential Diagnosis/HQI/PQRI: Acute TN, ACS, Angina, CHF, GI Disease, Lower Respiratory Infection, Pulmonary Embolism - Diagnoses Provider Diagnoses: Chest pain, Hypertension, poor control Discharge ED - Sign-Out/Discharge Documenting (check all that apply): Patient Departure Patient Received Moderate/Deep Sedation with Procedure: No - Discharge Plan Condition: Stable Disposition: HOME Patient Education Materials: Chest Pain (ED) Referrals: Celine Man MD [Primary Care Provider] - 2 Days Additional Instructions: All of your testing came back showing no damage to your heart, and no sign of a heart attack. You should still discuss with Dr. Man whether you should have further testing. Please return to the ER if you have any new or worsening symptoms. - Billing Disposition and Condition Condition: STABLE Disposition: Home - Attestation Statements Document Initiated by Kimberley: Yes Documenting Scribe: Tereza Martines Provider For Whom Kimberley is Documenting (Include Credential): Dr. Veena Leblanc MD. Scribe Attestation: Tereza Grossman scribed for Dr. Veena Leblanc MD. on 12/08/18 at 1055. Scribe Documentation Reviewed: Yes Provider Attestation: The documentation as recorded by the Tereza solitario accurately reflects the service I personally performed and the decisions made by me, Dr. Veena Leblanc MD. Status of Scribe Document: Viewed
[2018-11-16 16:12] LABS: ABS Basophils 0.1 10^3/ul (0-0.2); ABS Eosinophils 0.1 10^3/ul (0-0.6); ABS Monocytes 0.6 10^3/ul (0-0.8); ABS Neutrophils 3.7 10^3/ul (1.5-7.7); Eosinophil % 1.3 %; Hematocrit 40 % (35-47); Hemoglobin 13.4 g/dL (12.0-16.0); Lymphocyte % 18.6 %; Mean Corpuscular HGB Conc 34 g/dL (31-36); Mean Corpuscular Hemoglobin 30 pg (27-31); Mean Corpuscular Volume 91 fL (80-97); Mean Platelet Volume 7.3 fL (7.4-10.4); Platelet Count 385 10^3/uL (150-450); Red Cell Distribution Width 14 % (10-15); White Blood Count 5.5 10^3/uL (3.5-10.8)
[2018-11-16 16:21] LABS: Activated Partial Thrombo Time 31.1 seconds (26.0-38.0); INR 0.95 (0.82-1.09)
[2018-11-16 16:32] LABS: Urine Appearance Clear; Urine Bacteria Absent (Absent); Urine Bilirubin Negative (Negative); Urine Blood 2+ (Negative); Urine Color Straw; Urine Glucose Negative (Negative); Urine Ketones Negative (Negative); Urine Nitrite Negative (Negative); Urine Protein Negative (Negative); Urine Red Blood Cell 3+(>10/hpf) (Absent); Urine Specific Gravity 1.005 (1.010-1.030); Urine Squamous Epithelial Cell Present (Absent); Urine Urobilinogen Negative (Negative); Urine White Blood Cell 1+(6-10/hpf) (Absent)
[2018-11-16 16:35] LABS: Albumin 4.6 g/dL (3.2-5.2); Albumin/Globulin Ratio 1.8 (1-3); BUN/Creatinine Ratio 22.2 (8-20); Calcium 9.6 mg/dL (8.6-10.3); EGFR African American 109.7 (>60); EGFR Non-African American 90.7 (>60); Globulin 2.6 g/dL (2-4); Magnesium 2.2 mg/dL (1.9-2.7); Potassium 3.5 mmol/L (3.5-5.0); Total Bilirubin 0.6 mg/dL (0.2-1.0); Total Protein 7.2 g/dL (6.4-8.9)
[2018-11-16 16:40] LABS: CKMB ng/mL 3.6 ng/mL (0.6-6.3)
[2018-11-16 20:20] VITALS: BP 170/100
== END 2018-11-16 20:19 | disposition home or self-care (01) ==
LOC: ED 14:56
DX: R07.9 Chest pain, unspecified (principal); I10 Essential (primary) hypertension; E78.00 Pure hypercholesterolemia, unspecified; Z79.899 Other long term (current) drug therapy; R42 Dizziness and giddiness
CPT/HCPCS: 36415; 71045; 80053; 81003; 81015; 82550; 82553; 83735; 83880; 84443; 84484; 85025; 85610; 85730; 87086; 93005; 99212; 99282; A9270-GY; G0463

== ENCOUNTER 2019-04-18 08:08 | Emergency (ER) | payer MEDICARE, OTHER ==
--- OUTSIDE RECORDS SUMMARY | 2019-04-18 08:15 | XMS REPORT | Continuity of Care Document ---
:1935 External Reference #:[id number] Author Name Joby Bobby M.D. 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 Onset: 12/17/2017 Localized, primary osteoarthritis Jaiden Mtz M.D. Onset: 01/11/2019 Social History Type Date Description Comments Sex Unknown ETOH Use Denies alcohol use Tobacco Use Start: Unknown Patient has never smoked Smoking Status Reviewed: 01/11/19 Patient has never smoked Exercise Type/Frequency Exercises regularly Allergies, Adverse Reactions, Alerts Description No Known Drug Allergies Medications Active Medications SIG Qnty Indications Ordering Provider Date Ashely Knee Wrap right knee, size 1units M17.11 Nikhil Brown M.D. 09/19/2018 small wt 127 lbs ht 66 Diclofenac Sodium apply 4grams at a 100gm M17.12 Nikhil Brown M.D. 2018 1% time to the Gel affected area. Do not exceed 16 gms per day Metoprolol Succinate 1 by mouth twice Unknown ER a day 50mg Tablets ER 24HR Atorvastatin Calcium 1 by mouth two Unknown times a week.. 10mg Tablets Fosamax take 1 tablet by Unknown 70mg Tablets mouth weekly Glucosamine 1 tab a day Unknown Chondroitin Complex Capsules Calcium 1 tab daily Unknown 500mg Chewtabs Vitamin D3 1 by mouth every Unknown 2000Unit day Capsules Vitamin C 1 by mouth every Unknown Tablets day Amlodipine Besylate 1 by mouth every Unknown 5mg day Tablets Lisinopril 1 by mouth every Unknown 30mg Tablets day Vitamin B-12 1 by mouth every Unknown 1000mcg day Tablets Medications Administered in Office Medication SIG Qnty Indications Ordering Provider Date Depomedrol 40MG Nikhil Brown M.D. 10/26/2016 Injection Immunizations Description No Information Available Vital Signs Date Vital Result Comment 01/11/2019 10:19am Height 66 inches 5'6" Weight 125.00 lb Heart Rate 64 /min BP Systolic 118 mmHg BP Diastolic 74 mmHg Respiratory Rate 18 /min Body Temperature 97.5 F Pain Level 4 BMI (Body Mass Index) 20.2 kg/m2 12/09/2018 3:32pm Height 66 inches 5'6" Weight 128.50 lb Heart Rate 60 /min BP Systolic 122 mmHg BP Diastolic 70 mmHg BMI (Body Mass Index) 20.7 kg/m2 Results Description No Information Available Procedures Date Code Description Status 05/03/2017 782694336 Bone Mineral Density Test Completed Medical Devices Description No Information Available Encounters Type Date Location Provider Dx Diagnosis Office Visit 01/11/2019 [facility] Patricia Holt.Yaneth Unilateral primary 10:00a at [place] osteoarthritis, left knee Office Visit 12/09/2018 [facility] Ramila Thurston, M48.07 Spinal stenosis, 3:30p [facility] [place] lumbosacral region Assessments Date Code Description Provider 01/11/2019 M17.12 Unilateral primary osteoarthritis, left knee Jaiden Mtz M.D. 12/09/2018 M48.07 Spinal stenosis, lumbosacral region Ramila Thurston M.D. Plan of Treatment 01/11/2019 - Jaiden Mtz M.D.M17.12 Unilateral primary osteoarthritis, left kneeFollow up:Follow up: - Brace as needed for comfort - Continue Voltaren Gel - has at home As needed Functional Status Description No Information Available Mental Status Description No Information Available Referrals Description No Information Available
--- OUTSIDE RECORDS SUMMARY | 2019-04-18 08:15 | XMS REPORT | Continuity of Care Document ---
:1935 External Reference #:[id number] Author Name Michelle Levin PA-C Address [address] [address] Care Team Providers Name Role Phone Celine Man MD Care Team Information Ambulance Assistant [phone] Problems Active Problems Provider Date Impacted alex Rehman M.D. Onset: 11/14/2013 Social History Type Date Description Comments Sex Unknown Tobacco Use Start: Unknown End: Former Cigarette Smoker Packs for 8 years Unknown Daily 1 Tobacco Use Start: Unknown has never smoked cigars Tobacco Use Start: Unknown has never smoked a pipe Smokeless Tobacco has never used smokeless tobacco ETOH Use does not drink alcohol Tobacco Use Start: Unknown End: Patient is a former smoker Unknown Smoking Status Reviewed: 09/19/17 Patient is a former smoker Allergies, Adverse Reactions, Alerts Description No Known Drug Allergies Medications Active Medications SIG Qnty Indications Ordering Provider Date Metoprolol Tartrate Rony Sullivan 50mg Tablets Atorvastatin Calcium Dennys Traylor [place]e Parker 10mg Tablets Glucosamine Unknown Chondroitin 1500 Complex 1500Com Capsules Calcium 600 Unknown Vitamin D Unknown Vitamin C Unknown Amlodipine Besylate Carla Gar F.N.PLara Mir 2.5mg Tablets Lisinopril Take 1 Tablet By Unknown 30mg Tablets Mouth Every Day -- Discontinue 20MG Tablets Alendronate Sodium Take 1 Tablet By Unknown 70mg Mouth Once Weekly Tablets Immunizations CPT Code Status Date Vaccine Lot # [id number] Given Unknown Prevnar 13 For Intramuscular Use 48961 Given Unknown Influenza Virus Vaccine, 3 Years Of Age And Above, Intramuscular Vital Signs Date Vital Result Comment 04/10/2019 1:56pm Weight 123.00 lb Weight 55.793 kg Height 66 inches 5'6" Height in cm's 167.6 cm BMI (Body Mass Index) 19.9 kg/m2 08/02/2018 10:05am Weight 123.00 lb Weight 55.793 kg Height 66 inches 5'6" Height in cm's 167.6 cm BMI (Body Mass Index) 19.9 kg/m2 Results Description No Information Available Procedures Date Code Description Status 04/10/2019 05188 Removal Wax Impaction Completed Medical Devices Description No Information Available Encounters Description No Information Available Assessments Date Code Description Provider 04/10/2019 H61.23 Impacted cerumen, bilateral SARBJIT Kerr-C Plan of Treatment 04/10/2019 - SARBJIT Kerr-CH61.23 Impacted cerumen, bilateralFollow up:6 months [facility] Functional Status Description No Information Available Mental Status Description No Information Available Referrals Description No Information Available
[2019-04-18 08:34] VITALS: BP 134/78
--- NOTE | 2019-04-18 09:57 | UC ---
Hip/Pelvis Pain - HPI Summary HPI Summary: PATIENT GOT OUT OF HER CAR AT [employer] YESTERDAY AND TURNED BACKWARDS TO CHECK HER PARKING WHEN SHE LOST HER BALANCE AND FELL STRIKING THE LEFT HIP AND KNEE ON THE GROUND. NO HEAD INJURY OR LOC. NO DIZZINESS. - History Of Current Complaint Chief Complaint: UCLowerExtremity Stated Complaint: FALL,HIP PAIN Time Seen by Provider: 04/18/19 08:49 Hx Obtained From: Patient Hx Last Menstrual Period: years ago. Onset/Duration: Sudden Onset, Lasting Days - 1 DAY, Still Present Timing: Constant Severity Initially: Moderate Severity Currently: Moderate Pain Intensity: 8 Pain Scale Used: 0-10 Numeric Character Of Pain: Sharp Aggravating Factor(s): Weight Bearing Alleviating Factor(s): Rest Associated Signs And Symptoms: Positive: Negative - Allergies/Home Medications Allergies/Adverse Reactions: Allergies Allergy/AdvReac Type Severity Reaction Status Date / Time No Known Allergies Allergy Verified 04/18/19 08:21 Home Medications: Home Medications Cholecalciferol (Vitamin D3) [Vitamin D3] 1 tab PO DAILY 04/18/19 [History Confirmed 04/18/19] PMH/Surg Hx/FS Hx/Imm Hx Endocrine History: Dyslipidemia Cardiovascular History: Hypertension - Surgical History Surgical History: Yes Surgery Procedure, Year, and Place: cataracts - Family History Known Family History: Positive: Hypertension, Non-Contributory Negative: Cardiac Disease - Social History Alcohol Use: None Substance Use Type: None Smoking Status (MU): Former Smoker Have You Smoked in the Last Year: No When Did the Patient Quit Smoking/Using Tobacco: as a teenager - Immunization History Most Recent Influenza Vaccination: 2019 Most Recent Tetanus Shot: up to date per patient Most Recent Pneumonia Vaccination: pt is up to date Review of Systems All Other Systems Reviewed And Are Negative: Yes Constitutional: Positive: Negative Skin: Positive: Negative Respiratory: Positive: Negative Cardiovascular: Positive: Negative Gastrointestinal: Positive: Negative Musculoskeletal: Positive: Arthralgia Physical Exam Triage Information Reviewed: Yes Appearance: Well-Appearing, No Pain Distress, Well-Nourished Vital Signs: Initial Vital Signs Temp 97.5 F 04/18/19 08:16 Pulse 67 04/18/19 08:16 Resp 18 04/18/19 08:16 BP 134/78 04/18/19 08:16 Pulse Ox 100 04/18/19 08:16 Vital Signs Reviewed: Yes Eyes: Positive: Conjunctiva Clear ENT: Positive: Hearing grossly normal Neck: Positive: Supple Respiratory: Positive: No respiratory distress, No accessory muscle use Cardiovascular: Positive: Pulses Normal Abdomen Description: Positive: Soft Musculoskeletal: Positive: ROM Intact, No Edema, Other: - TTP LEFT GLUTEUS. HIPS STABLE. NEG SARAI/FAIR. NEG KNEE EXAM Neurological: Positive: Alert Psychological: Positive: Age Appropriate Behavior Skin: Negative: Rashes Diagnostics - Radiology LEFT HIP XRAYS Radiology Interpretation Completed By: Radiologist Summary of Radiographic Findings: 1. No radiographic evidence for LEFT hip fracture. As x-rays may be negative with nondisplaced hip fracture if there is persistent clinical concern MRI or in setting of contraindication to MRI or limitation in emergent access to MRI CT would be suggested. 2. Moderate bilateral hip joint osteoarthritis. LEFT KNEE XRAYS Radiology Interpretation Completed By: Radiologist Summary of Radiographic Findings: 1. OSTEOPENIA. 2. OSTEOARTHRITIS. 3. NO ACUTE OSSEOUS INJURY. THE DEGREE OF OSTEOPENIA MAY MAKE A NONDISPLACED FRACTURE RADIOGRAPHICALLY OCCULT. IF SYMPTOMS PERSIST, RECOMMEND REPEAT IMAGING. Hip Injury Course/Dx - Course Course Of Treatment: NO ACUTE BONY INJURY SEEN ON X-RAYS OF LEFT HIP AND LEFT KNEE TODAY. LIKELY CONTUSION. ADVISED REST, OTC MEDICATIONS NEEDED, ICE. FOLLOW-UP IF NEEDED. - Differential Dx/Diagnosis Provider Diagnosis: Contusion of left hip, Left knee pain Discharge ED - Sign-Out/Discharge Documenting (check all that apply): Patient Departure All imaging exams completed and their final reports reviewed: Yes - Discharge Plan Condition: Stable Disposition: HOME Patient Education Materials: Knee Pain (ED), Hip Contusion (ED) Referrals: Drew Elias MD [Medical Doctor] - If Needed Celine Man MD [Primary Care Provider] - 2 Weeks Additional Instructions: NO ACUTE FRACTURES OR BONY INJURY SEEN ON YOUR LEFT HIP AND LEFT KNEE X-RAYS TODAY. REST, ICE. GO THROUGH SLOW RANGE OF MOTION EXERCISES TO PREVENT STIFFENING UP AND MAKING THE DISCOMFORT WORSE. TAKE OTC MEDICATIONS NEEDED FOR DISCOMFORT. YOUR SYMPTOMS SHOULD IMPROVE OVER THE NEXT COUPLE OF WEEKS. IF YOU DO NOT IMPROVE EXPECTED FOLLOW-UP WITH YOUR PCP OR ORTHO. YOU MAY BENEFIT FROM REPEAT OR MORE ADVANCED IMAGING AT THAT TIME. - Billing Disposition and Condition Condition: STABLE Disposition: Home
== END 2019-04-18 10:46 | disposition home or self-care (01) ==
LOC: UCEAST 08:08
DX: S70.02XA Contusion of left hip, initial encounter (principal); I10 Essential (primary) hypertension; M16.0 Bilateral primary osteoarthritis of hip; M17.12 Unilateral primary osteoarthritis, left knee; M85.862 Other specified disorders of bone density and structure, left lower leg; W18.39XA Other fall on same level, initial encounter; Y92.9 Unspecified place or not applicable; Z87.891 Personal history of nicotine dependence
CPT/HCPCS: 99211; G0463

== ENCOUNTER 2019-06-06 15:22 | Emergency (ER) | payer MEDICARE, OTHER ==
--- OUTSIDE RECORDS SUMMARY | 2019-06-06 15:40 | XMS REPORT | Continuity of Care Document ---
:1935 External Reference #:[id number] Author Name Carlos Cardoza M.D. (transmitted by agent of provider Keysha Ledesma) Address [address] [place] [address] Care Team Providers Name Role Phone Celine Man MD - Internal Medicine Care Team Information Certified Dietary Manager Problems Active Problems Provider Date Lumbosacral stenosis Ramila Thurston M.D. Onset: 12/17/2017 Localized, primary osteoarthritis Jaiden Mtz M.D. Onset: 01/11/2019 Social History Type Date Description Comments Sex Unknown ETOH Use Denies alcohol use Tobacco Use Start: Unknown Patient has never smoked Smoking Status Reviewed: 05/29/19 Patient has never smoked Exercise Type/Frequency Exercises regularly Allergies, Adverse Reactions, Alerts Description No Known Drug Allergies Medications Active Medications SIG Qnty Indications Ordering Provider Date Metoprolol Succinate 1 by mouth every 90tabs Carlos Lane 05/29/2019 ER day Loree Cardoza 25mg Tablets ER 24HR Ashely Knee Wrap right knee, size 1units M17.11 Nikhil Brown M.D. 09/19/2018 small wt 127 lbs ht 66 Atorvastatin Calcium 1 by mouth two Unknown 10mg times a week.. Tablets Fosamax take 1 tablet by Unknown 70mg Tablets mouth weekly Glucosamine 1 tab a day Unknown Chondroitin Complex Capsules Calcium 1 tab daily Unknown 500mg Chewtabs Vitamin D3 1 by mouth every Unknown 2000Unit day Capsules Vitamin C 1 by mouth every Unknown Tablets day Amlodipine Besylate 2 by mouth every Unknown 5mg day Tablets Lisinopril 1 by mouth every Unknown 30mg Tablets day Vitamin B-12 1 by mouth every Unknown 1000mcg day Tablets Medications Administered in Office Medication SIG Qnty Indications Ordering Provider Date Depomedrol 40MG Nikhil Brown M.D. 10/26/2016 Injection Immunizations Description No Information Available Vital Signs Date Vital Result Comment 05/29/2019 9:02am Height 66 inches 5'6" Weight 132.12 lb with shoes Heart Rate 82 /min Left radial BP Systolic Sitting 118 mmHg Ule regular cuff BP Diastolic Sitting 68 mmHg Ule regular cuff BP Systolic Standing 122 mmHg Ule regular cuff BP Diastolic Standing 80 mmHg Ule regular cuff BMI (Body Mass Index) 21.3 kg/m2 Ejection Fraction EF 60-65% stress test 12/12/2018 01/11/2019 10:19am Height 66 inches 5'6" Weight 125.00 lb Heart Rate 64 /min BP Systolic 118 mmHg BP Diastolic 74 mmHg Respiratory Rate 18 /min Body Temperature 97.5 F Pain Level 4 BMI (Body Mass Index) 20.2 kg/m2 Results Description No Information Available Procedures Date Code Description Status 05/29/2019 04263 EKG Tracing & Interpretation Completed 04/09/2019 31508 ECHO Transthorasic Realtime 2D W Doppler & Color Flow Completed Hosp 04/09/2019 36173 EKG, Interpretation Only Completed 05/03/2017 [id number] Bone Mineral Density Test Completed Medical Devices Description No Information Available Encounters Type Date Location Provider Dx Diagnosis Office Visit 04/09/2019 [facility] Porter Ibarra, R55 Syncope and 9:16a [facility] [place] collapse I10 Essential (primary) hypertension E78.5 Hyperlipidemia, unspecified Office Visit 04/08/2019 9:15a [facility] Porter Ibarra, R55 Syncope and Assoc,[facility] [place] collapse Hospitalists I10 Essential (primary) hypertension Office Visit 01/11/2019 [place] Jaiden M17.12 Unilateral primary 10:00a [facility] osteoarthritis, left [place] knee Office Visit 12/09/2018 [place] Angélica Mcgrath M48.07 Spinal stenosis, 3:30p [facility] Thurston M.D. lumbosacral region Assessments Date Code Description Provider 05/29/2019 I10 Essential (primary) hypertension Carlos Cardoza M.D. 05/29/2019 R55 Syncope and collapse Carlos Cardoza M.D. 05/29/2019 R00.1 Bradycardia, unspecified Carlos Cardoza M.D. 05/29/2019 R94.31 Abnormal electrocardiogram [ECG] [EKG] Carlos Cardoza M.D. 05/29/2019 E78.00 Pure hypercholesterolemia, unspecified Carlos Cardoza M.D. 04/09/2019 R55 Syncope and collapse SARBJIT Blair 04/09/2019 R55 Syncope and collapse Joby Bobby M.D. 04/09/2019 I10 Essential (primary) hypertension SARBJIT Blair 04/09/2019 R07.9 Chest pain, unspecified Joby Bobby M.D. 04/09/2019 E78.5 Hyperlipidemia, unspecified SARBJIT Blair 04/08/2019 R55 Syncope and collapse SARBJIT Blair 04/08/2019 I10 Essential (primary) hypertension SARBJIT Blair 01/11/2019 M17.12 Unilateral primary osteoarthritis, left Jaiden Mtz M.D. knee 12/09/2018 M48.07 Spinal stenosis, lumbosacral region Ramila Thurston M.D. Plan of Treatment Future Appointment(s):06/19/2019 1:20 pm - Pati Medrano NP at [facility]05/29/2019 - Carlos Cardoza M.D.I10 Essential (primary) hypertensionFollow up:ov Marce 3 weeks ovJFM 4 mRecommendations:check bp's once a day for next 2 weeks and call with [id number] Syncope and rfgecykjW16.1 Bradycardia, lxvbyeylejyE87.31 Abnormal electrocardiogram [ECG] [EKG]New Orders: Stress Test, Exercise Nuclear, Ordered: 05/29/19E78.00 Pure hypercholesterolemia , unspecified Functional Status Description No Information Available Mental Status Description No Information Available Referrals Description No Information Available
[2019-06-06 16:15] LABS: ABS Eosinophils 0.1 10^3/ul (0-0.6); ABS Lymphocytes 0.8 10^3/ul (1.0-4.8); ABS Monocytes 0.5 10^3/ul (0-0.8); ABS Neutrophils 3.9 10^3/ul (1.5-7.7); Eosinophil % 1.1 %; Hematocrit 41 % (35-47); Lymphocyte % 14.6 %; Mean Corpuscular HGB Conc 34 g/dL (31-36); Mean Corpuscular Hemoglobin 31 pg (27-31); Mean Corpuscular Volume 91 fL (80-97); Mean Platelet Volume 7.6 fL (7.4-10.4); Platelet Count 318 10^3/uL (150-450); Red Blood Count 4.51 10^6 /uL (3.70-4.87); Red Cell Distribution Width 14 % (10-15); White Blood Count 5.3 10^3/uL (3.5-10.8)
[2019-06-06 16:23] LABS: INR 0.98 (0.82-1.09)
[2019-06-06] MEDS ORDERED: Aspirin 81 mg CHEW TAB* 81 MG TAB.CHEW PO ONE (16:27)
[2019-06-06 16:31] LABS: Troponin I 0.01 ng/mL (<0.03)
--- NOTE | 2019-06-06 16:31 | ED ---
HPI Chest Pain - HPI Summary HPI Summary: 83 year old F w hx HTN presenting to [facility] with a chief complaint of lower chest pain earlier today which lasted 5-8 minutes and occurred today as well as 2 days ago. She describes the pain as a pressure and states that it has since resolved. Patient reports intermittent chest pain, chills, thirst, and arm pain after getting off of the treadmill today at approximately 12:00. The patient rates the pain 0/10 in severity. Patient reports a history of anxiety and attributes this pain to that. No hx CO. Recent stress 11/2018, echo 03/[address] Cardoza. Medication list reviewed. Allergy list reviewed. - History of Current Complaint Chief Complaint: EDChestPainROMI Time Seen by Provider: 06/06/19 16:24 Hx Obtained From: Patient Hx Last Menstrual Period: years ago. Onset/Duration: Started Days Ago Timing: Intermittent Current Severity: None Pain Intensity: 0 Pain Scale Used: 0-10 Numeric Chest Pain Location: Lower Sternal Character: Pressure/Squeezing Aggravating Factor(s): Nothing Alleviating Factor(s): Nothing Associated Signs and Symptoms: Positive: Chills, Other: - Thirst; arm pain - Additional Pertinent History Primary Care Physician: VIRGIL - Allergy/Home Medications Allergies/Adverse Reactions: Allergies Allergy/AdvReac Type Severity Reaction Status Date / Time No Known Allergies Allergy Verified 04/18/19 08:21 Home Medications: Home Medications Alendronate (NF) [Fosamax (NF)] 1 tab PO WEEKLY 04/12/18 [History Confirmed 01/15] amLODIPine TAB* [Norvasc 5 mg TAB*] 10 mg PO QPM 04/12/18 [History Confirmed 01/15] Ascorbic Acid TAB* [Vitamin C TAB*] 500 mg PO DAILY 11/16/18 [History Confirmed 06/06/19] Atorvastatin* [Lipitor 10 MG*] 10 mg PO .TWICE WEEKLY 11/16/18 [History Confirmed 06/06/19] Calcium Carbonate CHEW TAB* [Tums*] 500 mg PO DAILY PRN 11/16/18 [History Confirmed 06/06/19] Cyanocobalamin (Vitamin B-12) [Vitamin B-12] 2,500 mcg SL DAILY 11/16/18 [ History Confirmed 06/06/19] Glucosam/Chondr/Collagn/Hyalur [Glucosamine & Chondroitin Cap] 1 cap PO DAILY [History Confirmed 06/06/19] Polyethylene Glycol 3350* [Miralax (17 GM DOSE FRANCESCA)] 17 gm PO DAILY PRN [History Confirmed 06/06/19] Cholecalciferol (Vitamin D3) [Vitamin D3] 2,000 units PO DAILY 04/18/19 [ History Confirmed 06/06/19] Metoprolol Tartrate TAB* [Lopressor TAB*] 25 mg PO QAM 06/06/19 [History Confirmed 06/06/19] lisinopriL [Lisinopril 30 MG-] 30 mg PO DAILY 06/06/19 [History Confirmed ] PMH/Surg Hx/FS Hx/Imm Hx Endocrine/Hematology History: Denies: Hx Diabetes, Hx Thyroid Disease Cardiovascular History: Reports: Hx Hypercholesterolemia, Hx Hypertension Denies: Hx Congestive Heart Failure, Hx Deep Vein Thrombosis, Hx Myocardial Infarction, Hx Pacemaker/ICD Respiratory History: Denies: Hx Asthma, Hx Chronic Obstructive Pulmonary Disease (COPD), Hx Lung Cancer, Hx Pneumonia, Hx Pulmonary Embolism GI History: Denies: Hx Gall Bladder Disease, Hx Gastrointestinal Bleed, Hx Ulcer, Hx Urosepsis History: Denies: Hx Kidney Stones, Hx Renal Disease Musculoskeletal History: Reports: Hx Osteoporosis, Hx Scoliosis, Other Musculoskeletal History - FRACTURED VERTABRAE- 4-5 YEARS AGO Sensory History: Reports: Hx Cataracts - BILATERAL, Hx Contacts or Glasses - GLASSES Denies: Hx Hearing Aid Opthamlomology History: Reports: Hx Cataracts - BILATERAL, Hx Contacts or Glasses - GLASSES Neurological History: 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 Denies: Hx Dementia, Hx Headaches, Hx Migraine, Hx Seizures, Hx Transient Ischemic Attacks (TIA) Psychiatric History: Reports: Hx Anxiety Denies: Hx Depression, Hx Panic Disorder, Hx Schizophrenia, Hx Bipolar Disorder - Cancer History Hx Chemotherapy: No Hx Radiation Therapy: No - Surgical History Surgery Procedure, Year, and Place: cataracts Infectious Disease History: No Infectious Disease History: Denies: Hx Clostridium Difficile, Hx Hepatitis, Hx Human Immunodeficiency Virus (HIV), Hx of Known/Suspected MRSA, Hx Shingles, Hx Tuberculosis, Hx Known/ Suspected VRE, Hx Known/Suspected VRSA, History Other Infectious Disease, Traveled Outside the [place] in Last 30 Days - Family History Known Family History: Positive: Hypertension Negative: Cardiac Disease - Social History Alcohol Use: None Hx Substance Use: No Substance Use Type: Reports: None Hx Tobacco Use: No Smoking Status (MU): Former Smoker Have You Smoked in the Last Year: No Review of Systems Positive: Chills, Other - Thirst Positive: Chest Pain Positive: Other - Arm pain All Other Systems Reviewed And Are Negative: Yes Physical Exam - Summary Physical Exam Summary: Constitutional: Well-developed, Well-nourished, Alert. (-) Distressed Skin: Warm, Dry HENT: Normocephalic; Atraumatic Eyes: Conjunctiva normal Neck: Musculoskeletal ROM normal neck. (-) JVD, (-) Stridor, (-) Nuchal rigidity Cardio: Rhythm regular, rate normal, Heart sounds normal; Intact distal pulses; Radial pulses are 2+ and symmetric. (-) Murmur Pulmonary/Chest wall: Effort normal. (-) Respiratory distress, (-) Wheezes, (-) Rales Abd: Soft, (-) tenderness, (-) Distension, (-) Guarding, (-) Rebound Musculoskeletal: (-) Edema Lymph: (-) Cervical adenopathy Neuro: Alert, Oriented x3 Psych: Mood and affect Normal Triage Information Reviewed: Yes Vital Signs On Initial Exam: Initial Vitals Temp Pulse Resp BP Pulse Ox 98.4 F 66 16 152/86 98 06/06/19 15:33 06/06/19 15:33 06/06/19 15:33 06/06/19 15:33 06/06/19 15:33 Vital Signs Reviewed: Yes Procedures - Sedation Patient Received Moderate/Deep Sedation with Procedure: No Diagnostics - Vital Signs Vital Signs Temp Pulse Resp BP Pulse Ox 06/06/19 15:33 98.4 F 66 16 152/86 98 - Laboratory Lab Results: Lab Results 06/06/19 06/06/19 Range/Units 16:03 16:03 WBC 5.3 (3.5-10.8) 10^3/uL RBC 4.51 (3.70-4.87) 10^6 /uL Hgb 14.0 (12.0-16.0) g/dL Hct 41 (35-47) % MCV 91 (80-97) fL MCH 31 (27-31) pg MCHC 34 (31-36) g/dL RDW 14 (10-15) % Plt Count 318 (150-450) 10^3/uL MPV 7.6 (7.4-10.4) fL Neut % (Auto) 74.0 % Lymph % (Auto) 14.6 % [place] % (Auto) 9.7 % Eos % (Auto) 1.1 % Baso % (Auto) 0.6 % Absolute Neuts (auto) 3.9 (1.5-7.7) 10^3/ul Absolute Lymphs (auto) 0.8 L (1.0-4.8) 10^3/ul Absolute Monos (auto) 0.5 (0-0.8) 10^3/ul Absolute Eos (auto) 0.1 (0-0.6) 10^3/ul Absolute Basos (auto) 0.0 (0-0.2) 10^3/ul Absolute Nucleated RBC 0.0 10^3/ul Nucleated RBC % 0.0 INR (Anticoag Therapy) 0.98 (0.82-1.09) Result Diagrams: 06/06/19 16:03 06/06/19 16:03 Lab Statement: Any lab studies that have been ordered have been reviewed, and results considered in the medical decision making process. - Radiology Chest x-ray Radiology Interpretation Completed By: Radiologist Summary of Radiographic Findings: HYPERINFLATION. NO ACTIVE CARDIOPULMONARY DISEASE. ED physician has reviewed this report. - EKG 15:28 Cardiac Rate: NL - 68 BPM EKG Rhythm: Sinus Rhythm Summary of EKG Findings: An EKG at 15:28 reveals normal sinus rhythm rate of 68 , T-Wave flattening in lead 3; when compared to EKG done on 04/09/2019, no significant change. ED physician has reviewed and interpreted this EKG. Re-Evaluation - Re-Evaluation First Eval Re-Evaluation Time: 16:35 Comment: The patient had an echocardiogram in March which showed a normal EF. She also had a stress test in November of 2018 which was negative. Chest Pain Course/Dx - Course Course Of Treatment: 83 y/o F w HTN, HLD p/w CP. - VSS NAD. - regarding chest pain, patient had a negative stress test in November of last year, normal echo in March this year. chest x-ray here unremarkable, no evidence of pneumonia, pneumothorax. Patient doesn't describe tearing chest pain associated with dissection. Regarding ACS, troponin normal and EKG unchanged. D/w on-call cardiology, who recommended second troponin and EKG. If these are unremarkable , she can be discharged for outpatient follow-up as she has had recent cardiac workup. Patient signed out to Dr. oCndon at 19:00 on 06/06/2019 pending labs, EKG, and disposition. - Diagnoses Provider Diagnoses: Chest pain - Provider Notifications Discussed Care Of Patient With: Joby Bobby Time Discussed With Above Provider: 17:13 Instructed by Provider To: Other - Spoke with Dr. Bobby who recommends a repeat troponin which will occur at 19:00 and a repeat EKG. If normal she can go home given prior cardiac w/u. Discharge ED - Sign-Out/Discharge Documenting (check all that apply): Sign-Out Patient Signing out patient TO: Amanda Condon - Pending labs, EKG, and disposition. - Discharge Plan Condition: Stable Disposition: HOME Patient Education Materials: Chest Pain (ED) Referrals: Celine Man MD [Primary Care Provider] - 3 Days Additional Instructions: PLEASE RETURN TO ED FOR ANY NEW OR CONCERNING SYMPTOMS. PLEASE FOLLOW UP WITH YOUR PRIMARY CARE PHYSICIAN WITHIN THREE DAYS. - Billing Disposition and Condition Condition: STABLE Disposition: Home - Attestation Statements Document Initiated by Kimberley: Yes Documenting Scribe: Niru Falcon Provider For Whom Ericibe is Documenting (Include Credential): Xenia Eisenberg MD Scribe Attestation: I, Niru Falcon, scribed for Xenia Eisenberg MD on 06/06/19 at 2206. Scribe Documentation Reviewed: Yes Provider Attestation: The documentation as recorded by the Niru solitario accurately reflects the service I personally performed and the decisions made by , Xenia Eisenberg MD Status of Scribe Document: Viewed
[2019-06-06 16:43] LABS: Albumin 4.7 g/dL (3.2-5.2); Albumin/Globulin Ratio 1.9 (1-3); BUN/Creatinine Ratio 25.8 (8-20); Globulin 2.5 g/dL (2-4); Potassium 3.9 mmol/L (3.5-5.0); Total Bilirubin 0.7 mg/dL (0.2-1.0); Total Protein 7.2 g/dL (6.4-8.9)
[2019-06-06 16:56] LABS: CKMB ng/mL 5.2 ng/mL (0.6-6.3)
[2019-06-06 17:51] LABS: Magnesium 2.1 mg/dL (1.9-2.7)
--- NOTE | 2019-06-06 20:25 | ED ---
Progress - Progress Note Progress Note: Patient is received as a sign-out from Dr. Eisenberg at 1900 06/06/19 shift change pending repeat trop and EKG. 1933 - EKG reveals normal sinus rhythm with rate of 63 BPM, no acute changes, no ischemic changes. This EKG was reviewed and interpreted by Dr. Condon 2024 - trop was negative. Patient to be discharged to home with PCP followup. Re-Evaluation - Re-Evaluation First Eval Re-Evaluation Time: 20:25 Comment: 2024 - trop was negative. Patient to be discharged to home with PCP followup. Course/Dx - Diagnoses Provider Diagnoses: Chest pain Discharge ED - Sign-Out/Discharge Documenting (check all that apply): Patient Departure - discharge , Receiving Sign-Out Receiving patient FROM: Xenia Eisenberg - Discharge Plan Condition: Stable Disposition: HOME Patient Education Materials: Chest Pain (ED) Referrals: Celine Man MD [Primary Care Provider] - 3 Days Additional Instructions: PLEASE RETURN TO ED FOR ANY NEW OR CONCERNING SYMPTOMS. PLEASE FOLLOW UP WITH YOUR PRIMARY CARE PHYSICIAN WITHIN THREE DAYS. - Billing Disposition and Condition Condition: STABLE Disposition: Home - Attestation Statements Document Initiated by Ericibe: Yes Documenting Scribe: HEENA ESCOBEDO Provider For Whom Ericibestela is Documenting (Include Credential): CURLY CONDON MD Scribe Attestation: IHEENA, scribed for CURLY CONDON MD on 06/07/19 at 0647. Scribe Documentation Reviewed: Yes Provider Attestation: The documentation as recorded by the HEENA solitario accurately reflects the service I personally performed and the decisions made by me, CURLY CONDON MD Status of Scribe Document: Viewed
[2019-06-06 20:39] VITALS: BP 130/79
== END 2019-06-06 20:39 | disposition home or self-care (01) ==
LOC: ED 15:22
DX: R07.9 Chest pain, unspecified (principal); E78.00 Pure hypercholesterolemia, unspecified; I10 Essential (primary) hypertension; F41.9 Anxiety disorder, unspecified; Z79.899 Other long term (current) drug therapy; Z87.891 Personal history of nicotine dependence; R94.31 Abnormal electrocardiogram [ECG] [EKG]
CPT/HCPCS: 36415; 71045; 80053; 82550; 82553; 83735; 83880; 84443; 84484; 85025; 85610; 85730; 93005; 99283; A9270-GY